=== PATIENT | female | born 1970 | race Caucasian/White ===

== ENCOUNTER → 2025-05-17 | Outpatient (REF) | payer OTHER ==
[~2025-05-17] MED LIST: IOPAMIDOL 370 MG/ML 100 ML INFUS..BTL INJ ONE; ZOMIG5 MG PO
== END ==
LOC: CT 07:47
PROVIDERS: ATTEND Internal Medicine Gastroenterology
DX: R10.32 Left lower quadrant pain (principal)
CPT/HCPCS: 74177; Q9967